=== PATIENT | female | born 1975 | race Caucasian/White ===

== ENCOUNTER 2017-04-04 08:53 | Emergency (ER) | payer MEDICAID, OTHER | END 2017-04-04 10:20 | disposition home or self-care (01) | LOC: MADERS 08:53 | DX: M54.12 Radiculopathy, cervical region (principal); E78.5 Hyperlipidemia, unspecified; F32.9 Major depressive disorder, single episode, unspecified; F41.9 Anxiety disorder, unspecified; F17.210 Nicotine dependence, cigarettes, uncomplicated; Z79.899 Other long term (current) drug therapy | CPT/HCPCS: 36416; 99283 ==

== ENCOUNTER 2017-04-06 19:59 | Emergency (ER) | payer MEDICAID, SELFPAY ==
[2017-04-06] MEDS ORDERED: Lorazepam 1 MG TAB ONE (20:24)
== END 2017-04-06 20:37 | disposition home or self-care (01) ==
LOC: MADERS 19:59
DX: F41.9 Anxiety disorder, unspecified (principal); T38.0X5A Adverse effect of glucocorticoids and synthetic analogues, initial encounter; L98.499 Non-pressure chronic ulcer of skin of other sites with unspecified severity; E78.5 Hyperlipidemia, unspecified; F32.9 Major depressive disorder, single episode, unspecified; F17.210 Nicotine dependence, cigarettes, uncomplicated; Z79.52 Long term (current) use of systemic steroids; Z79.899 Other long term (current) drug therapy
CPT/HCPCS: 36416; 93005

== ENCOUNTER 2019-03-11 11:00 | Emergency (ER) | payer OTHER ==
[~2019-03-11 11:00] MED LIST: Sodium Chloride 0.9% 1,000 ML BAG ONE
== END 2019-03-11 13:10 | disposition home or self-care (01) ==
LOC: MADERS 11:00
DX: E86.0 Dehydration (principal); R19.7 Diarrhea, unspecified; E78.5 Hyperlipidemia, unspecified; R73.03 Prediabetes; F17.210 Nicotine dependence, cigarettes, uncomplicated; F41.9 Anxiety disorder, unspecified; F32.9 Major depressive disorder, single episode, unspecified; Z79.899 Other long term (current) drug therapy
CPT/HCPCS: 96360; J7050

== ENCOUNTER 2019-09-06 15:48 | Emergency (ER) | payer OTHER ==
[~2019-09-06 15:48] MED LIST changes: +Iopamidol 370 76% 125 ML VIAL FS ONE
[2019-09-06] MEDS ORDERED: diphenhydrAMINE 50 MG/ML VIAL ONE (16:58)
[2019-09-06] MEDS ORDERED: Acetaminophen 500 MG TAB ONE (16:58)
[2019-09-06] MEDS ORDERED: Prochlorperazine 10 MG/2 ML VIAL ONE (16:58)
[2019-09-06 17:01] LABS: #Basophils 0.1 thou/uL (0.0-0.2); #Eosinphils 0.1 thou/uL (0.0-0.7); #Lymphocytes 1.7 thou/uL (1.20-3.40); #Monocytes 0.4 thou/uL (0.11-0.59); #Neutrophils 4.1 thou/uL (1.40-6.50); %Basophils 0.9 % (0.0-1.0); %Eosinophils 1.5 % (0.0-10.0); %Lymphocytes 26.4 % (21.0-51.0); %Monocytes 6.5 % (0.0-10.0); %Neutrophils 64.7 % (42.0-75.0); Hemoglobin 15.1 g/dL (12.0-16.0); Mean Corpuscular HGB CONC 31.2 g/dL (32.0-36.0); Mean Corpuscular Hemoglobin 29.1 pg (27.0-31.0); Mean Corpuscular Volume 93.2 fL (78.0-98.0); Mean Platelet Volume 10.1 fL (7.4-10.4); Platelet Count 278 thou/uL (130-400); RBC Distribution Width 11.9 % (11.5-14.5); Red Blood Cell (RBC) Count 5.21 mill/uL (4.20-5.40); White Blood Cell (WBC) Count 6.3 thou/uL (4.8-10.8)
[2019-09-06 17:19] LABS: ALT (SGPT) 10 U/L (8-55); AST (SGOT) 14 U/L (5-34); Albumin 4.6 g/dL (3.5-5.0); Alkaline Phosphatase 68 U/L (40-110); Anion Gap 18 mmol/L (10-20); BUN (Urea Nitrogen) 11 mg/dL (7.0-18.7); Bilirubin, Total 0.4 mg/dL (0.2-1.2); Calc. Creatinine Clearance 0 mL/min (70-130); Carbon Dioxide 24 mmol/L (22-29); Chloride 104 mmol/L (98-107); Estimated GFR-MDRD 65; Globulin 3.1 g/dL (2.4-3.5); Glucose 101 mg/dL (70-105); Potassium 3.7 mmol/L (3.5-5.1); Protein, Total 7.7 g/dL (6.0-8.3); Sodium 142 mmol/L (136-145)
--- NOTE | 2019-09-06 17:35 | CT ---
CT BRAIN NONCONTRAST: DATE: 09/06/2019 HISTORY: 44-year-old female status post blunt head trauma after fall due to syncope FINDINGS: There is no evidence of acute intra-axial or extra-axial hemorrhage. There is no midline shift or any other mass effect. There is no extra-axial fluid collection. There is no evidence of obstructive hydrocephalus. Calvarium is intact. IMPRESSION: No acute intracranial findings.
--- NOTE | 2019-09-06 17:36 | CT ---
CT CERVICAL SPINE NONCONTRAST: DATE: 09/06/2019 HISTORY: cervical trauma FINDINGS: There are no jumped or perched facets. There is no evidence of acute fracture. The vertebral body hei ghts are maintained. There is no prevertebral soft tissue swelling. IMPRESSION: No evidence of acute fracture or acute traumatic subluxation.
--- NOTE | 2019-09-06 17:49 | CT ---
EXAM: CT Lumbar Spine WO Con DATE: 09/06/2019 4:46 PM INDICATION: Fall with low back pain COMPARISON: None. FINDING: No acute fracture or subluxation is evident. Spinal alignment is preserved. Osseous central canal is within normal limits. There is mild degenerative change of both SI joints. Visualized retroperitoneum and paravertebral soft tissues appear within normal limits. IMPRESSION:No acute fracture or subluxation demonstrated.
--- NOTE | 2019-09-06 17:58 | CT ---
CT Thoracic Spine WO Con Indication: Fall with back pain COMPARISON: None. FINDINGS: Fracture: None. Spinal alignment: No acute malalignment. Vertebral body heights: Maintained. Thoracic spine degenerative change: Mild multilevel disc degenerative disease. Lungs: Clear. 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 IMPRESSION: No acute osseous abnormality.
--- NOTE | 2019-09-06 18:47 | CT ---
CT ANGIOGRAM THORAX WITH IV CONTRAST AND 3D RECONSTRUCTIONS: 09/06/19 HISTORY: Syncope, shortness of breath, and elevated D-dimer. COMPARISON: None. FINDINGS: No filling defects are seen within the central or segmental pulmonary arteries to suggest a pulmonary embolus. The thoracic aorta is normal in caliber without evidence of an aortic dissection. The mediastinal structures demonstrate a normal appearance. No enlarged lymph nodes are seen are seen by CT size criteria. There is mild volume loss within the lungs bilaterally. No pleural effusion or area of consolidation is seen in the lungs bilaterally. Upper abdomen demonstrates postsurgical changes of the stomach likely related to gastric bypass proce dure. Remainder of the visualized upper abdomen demonstrates normal CT appearance for phase of imagin g. IMPRESSION: No CT evidence of a pulmonary embolus involving the central or segmental pulmonary arteries. POS: TONY
== END 2019-09-06 19:24 | disposition left against medical advice (07) ==
LOC: MADERS 15:48
DX: S16.1XXA Strain of muscle, fascia and tendon at neck level, initial encounter (principal); S29.012A Strain of muscle and tendon of back wall of thorax, initial encounter; S20.211A Contusion of right front wall of thorax, initial encounter; S05.12XA Contusion of eyeball and orbital tissues, left eye, initial encounter; R55 Syncope and collapse; E78.5 Hyperlipidemia, unspecified; E78.00 Pure hypercholesterolemia, unspecified; F41.9 Anxiety disorder, unspecified; F32.9 Major depressive disorder, single episode, unspecified; F17.210 Nicotine dependence, cigarettes, uncomplicated; Z79.899 Other long term (current) drug therapy; W18.30XA Fall on same level, unspecified, initial encounter
CPT/HCPCS: 70450; 71275; 72125; 72128; 72131; 80053; 85025; 85379; 93005; 96365; 96366; 96375; J0780; J1200; J7050; Q9967

== ENCOUNTER 2020-02-08 12:37 | Outpatient (CLI) | payer OTHER ==
--- NOTE | 2020-02-08 13:58 | RAD ---
CERVICAL SPINE THREE VIEWS: 02/08/20 HISTORY: Status post surgery in November. COMPARISON: 11/01/19. FINDINGS: Anterior cervical fusion changes noted at C3, C4, C5 and C6 with intradiscal prosthesis. No significa nt prevertebral soft tissue swelling. Generalized ligament and facet hypertrophic changes. IMPRESSION: Postop anterior cervical fusion changes at C3 through C7 without malalignment or prevertebral soft ti ssue swelling. POS: RRE
== END 2020-02-08 12:38 | disposition home or self-care (01) ==
LOC: MADRAD 12:37
PROVIDERS: ATTEND Neurological Surgery
DX: M54.12 Radiculopathy, cervical region (principal); Z98.1 Arthrodesis status
CPT/HCPCS: 72040

== ENCOUNTER 2021-04-08 08:05 | Emergency (ER) | payer MEDICARE, OTHER | END 2021-04-08 09:25 | disposition left against medical advice (07) | LOC: MADERS 08:05 | DX: Z53.21 Procedure and treatment not carried out due to patient leaving prior to being seen by health care provider (principal) ==

== ENCOUNTER 2021-05-07 14:23 | Outpatient (CLI) | payer MEDICARE, OTHER | END 2021-05-07 14:24 | disposition home or self-care (01) | LOC: MADRAD 14:23 | PROVIDERS: ATTEND Orthopaedic Surgery | DX: M25.511 Pain in right shoulder (principal); M19.011 Primary osteoarthritis, right shoulder ==